=== PATIENT | female | born 1965 | race African-American/Black ===

== ENCOUNTER 2021-03-14 07:42 | Day surgery (SDC) | payer BC, OTHER ==
[2021-03-14 08:38] LABS: Absolute Lymphocytes (CBC) 1.5 K/uL (0.7-4.9); Basophils % 0.4 % (0-1.3); Hematocrit 40.8 % (36.0-45.0); Lymphocytes % 23.1 % (15.3-44.8); MPV 9.5 fL (7.6-11.3); RBC Red Blood Cell Count 4.85 M/uL (3.86-4.86)
--- NOTE | 2021-03-14 09:01 | RAD REPORT ---
EXAM DESCRIPTION: RAD - Chest Pa And Lat (2 Views) - 03/14/2021 8:16 am CLINICAL HISTORY: STAT, PREOP SAME DAY SURGERY, BED 3 COMPARISON: None TECHNIQUE: Frontal and lateral views of the chest were obtained. FINDINGS: The lungs are clear. Heart size is normal and central vasculature is within normal limit s. No pleural effusion or pneumothorax seen. No acute bony finding noted. No aortic abnormality. IMPRESSION: No acute cardiopulmonary process.
[2021-03-14 09:22] LABS: Potassium 3.9 mmol/L (3.5-5.1)
[2021-03-14] MEDS ORDERED: propofoL 200 MG/20 ML VIAL IV ONE (10:41)
[2021-03-14] MEDS ORDERED: MIDAZOLAM HCL 2 MG/2 ML INJ ONE (10:42)
[2021-03-14] MEDS ORDERED: LIDOCAINE 2% MPF 5 ML VIAL ONE (10:42)
[2021-03-14] MEDS ORDERED: BUPIVACAINE 0.5% PF 10 ML VIAL ONE (10:42)
[2021-03-14] MEDS ORDERED: FENTANYL CITR 100 MCG/2 ML ONE (10:42)
[2021-03-14] MEDS ORDERED: ONDANSETRON 4 MG/2 ML VIAL ONE (10:42)
[2021-03-14] MEDS: NA CHLORIDE 0.9% 1,000 ML ONE ×2 (10:51→10:55)
[2021-03-14] MEDS: CEFAZOLIN/SWI 1gm 1 GM/10 ML SYR ONE ×2 (10:52→11:10)
--- NOTE | 2021-03-14 11:33 | P.BOP ---
Preoperative diagnosis: tender posterior scalp mass 4x 4 cm Postoperative diagnosis: tender posterior scalp mass 3x 3 cm Primary procedure: Excisional biopsy tender posterior scalp mass 3x 3 cm Estimated blood loss: <10cc Specimen: posterior scalp mass 3x 3 cm Findings: posterior scalp mass 3x 3 cm Anesthesia: General Complications: None Transferred to: Recovery Room Condition: Good
[2021-03-14] MEDS ORDERED: EPHEDRINE SULF 50 MG/ML VIAL ONE (11:39)
[2021-03-14] MEDS ORDERED: KETOROLAC 30 MG/ML INJ ONE (11:51)
[2021-03-14] MEDS ORDERED: MEPERIDINE HCL 25 MG/ML SYR ONE (12:28)
[2021-03-14] MEDS ORDERED: CODEINE 30MG/APAP 300MG TAB ONE (13:13)
[2021-03-14 14:02] VITALS: BP 129/68; TEMP 97.4; O2SAT 98
--- NOTE | 2021-03-14 16:35 | DS ---
Date of Discharge: 03/14/2021 Diagnosis: Tender posterior scalp mass. Procedure: Excisional biopsy of tender posterior scalp mass. Disposition: Home. Activity: As tolerated. No heavy lifting. Plan: Follow up in my office in 1 week. Call for appointment at [phone]. Keep area dry for 48 laura rs, then may shower. May put some triple antibiotics after that. SEYMOUR/JOSH Voice ID: [id number] Report ID: [id number]
--- NOTE | 2021-03-14 16:35 | OP ---
Date of Procedure: 03/14/2021 Surgeon: Bishop Lafleur MD Preoperative Diagnosis: Tender posterior scalp mass, 4 x 4 cm. Postoperative Diagnosis: Tender posterior scalp mass, 3 x 3 cm. Procedure: Excisional biopsy of tender posterior scalp mass, 3 x 3 cm. Estimated Blood Loss: Less than 10 mL. Specimen: Posterior scalp mass, 3 x 3 cm. Anesthesia: General plus local. Findings: Posterior scalp mass. Complications: None. Indication: This is the case of a lady, who comes to us with enlarging mass in the posterior scalp. Given pain and discomfort, she wants that excised. It is already causing alopecia over the area of the mass itself due to pressure. The benefits, alternatives, and risks of excisional biopsy of scalp mass fully explained, which include, but not limited to infection, bleeding, damage to adjacent stru ctures, anesthesia complication, recurrence, further alopecia, [place], and even . She also understa nds this may not relieve any symptoms. She might need more than one surgical intervention. She unde rstood, signed a consent. Procedure In Detail: The area of concern was marked by me and the patient in the holding room. The patient was brought to the operating room, placed in supine position. Anesthesia was done without co mplication. The patient was placed in lateral decubitus position with proper protection. Scalp area was prepped and draped in usual sterile fashion. The area was marked with marking pen. Then, a wed ge incision in the skin was done to include the skin and the mass all the way down to [place]. The are a was irrigated. Hemostasis was obtained. Local anesthesia was applied and then we proceeded to jeannette se the area with 2-0 nylon interrupted until it is completely closed multiple times. The patient gardenia erated the procedure well. The patient was sent to recovery in stable condition. SEYMOUR/JOSH Voice ID: [id number] Report ID: [id number]
== END 2021-03-14 13:16 | disposition home or self-care (01) ==
LOC: OR 07:42
PROVIDERS: ATTEND Surgery
PROC: 0JB00ZZ Excision of Scalp Subcutaneous Tissue and Fascia, Open Approach (ICD-10-PCS; principal; 2021-03-14 10:30)
DX: L72.11 Pilar cyst (principal); Z20.822 Contact with and (suspected) exposure to COVID-19
CPT/HCPCS: 93005; 85025; 80048; 36415; 88304; 71046; 11423; U0003; J2704; J2250; J3010; J2175; J0690; J7030; J2405; 88305

== ENCOUNTER 2022-08-18 09:55 | Emergency (ER) | payer OTHER ==
--- OUTSIDE RECORDS SUMMARY | 2022-08-18 10:01 | XMS REPORT | Continuity of Care Document ---
:[address] [facility] t Address [address] [place] [address] Care Team Providers Name Role Phone Josie FIELDS Attending Clinician Unavailable Payers Payer Name Policy Type Policy Number Effective Date Expiration Date Sorin wu Ambetter from [id number] 2020 2021 Common Spi [facility] 00:00:00 00:00:00 [facility] Ambetter from [id number] 2020 2021 Common [facility]pi [facility] 00:00:00 00:00:00 [facility] Ambetter from [id number] 2020 2021 Common [facility]pi [facility] 00:00:00 00:00:00 [facility] Problems Condition Condition Condition Status Onset Resolution Last Treating Co mments Source Name Details Category Date Date Treatment Clinician Date 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) [facility] Essential Essential Problem Com mon hypertensi (primary) Spi rit on hypertensi - CHI on [facility] [id number] Controlled Problem Co mmon type 2 Spirit diabetes - CHI mellitus [facility] complicati Medica l on, Center without long-term current use of insulin Cardiac Abnormal Problem Common arrhythmia heart [facility] rhythm [facility] Hyperlipid Hyperlipid Problem C cox monettia ia [facility] Diabetes Diabetes Problem Commo n mellitus DMII Spirit without without - CHI complicati complicati on [facility] Renal Renal Problem Common insufficie insufficie Sp landon ncy ncy [facility] Hypomagnes Hypomagnes Problem C [facility] emia emia [facility] [id number] Adult BMI Problem Com mon 31.0-31.9 [facility] kg/sq m [facility] [id number] Acute Problem Common right-side [facility] d low back - [facility] pain with right-side [facility] [id number] Change in Problem Com [facility] bowel [facility] habit [facility] [id number] History of Problem Co mmon colon [facility] polyps [facility] [id number] Carpal Problem Commo n [id number] tunnel [facility] syndrome - [facility] on both [facility] [id number] Lumbago Problem Commo n with Spirit sciatica, [facility] left side [facility] Neuropathy Neuropathy Problem C ommon [facility] Polyp Colon Problem Common colon polyp [facility] [id number] Other Problem Common chronic [facility] pain [facility] [id number] Overactive Problem Co mmon bladder [facility] [id number] Spondylosi Problem Co mmon s of [facility] lumbar [facility] joint [facility] Allergies, Adverse Reactions, Alerts This patient has no known allergies or adverse reactions. Social History Social Habit Start Date Stop Date Quantity Comments Source History of Tobacco Use Co mmon [facility] Sex Assigned At [facility] [place] Smoking Status Start Date Stop Date Source Never Smoker Common [facility] Medications Ordered Filled Start Stop Current Ordering Indication Dosage Frequency Signature Comments Components Source Medication Medication Date Date Medication? Clinician (SIG) Name Name Fluconazole Fluconazole 2021- No 1{table Fluconazol 150 MG 150 MG 18 05-19 t} e 150 MG 00:00: 00:00 00 :00 Diclofenac Diclofenac 2020-0 2020- No Na Fields 2 gram Common Sodium Sodium 8 11 applicatio Spir it 00:00: 00:00 n to - CHI 00 :00 affected [facility] Triamcinolo Triamcinolo 2019 Yes Na Fields 1 Common ne ne 2-23 applicatio Spirit Acetonide Acetonide 00:00: n to - C HI 00 affected [facility] Triamcinolo Triamcinolo 2019 No 1{appli BID Triamcinol ne ne 2-23 cation_ one Acetonide Acetonide 00:00: to_affe Acetonide 0.1 % 0.1 % 00 cted_ar 0.1 % ea} Triamcinolo Triamcinolo 2018-07 No 1{appli BID Triamcinol ne ne 2-23 cation_ one Acetonide Acetonide 00:00: to_affe Acetonide 0.1 % 0.1 % 00 cted_ar 0.1 % ea} Triamcinolo Triamcinolo 2018-07 No 1{appli BID Triamcinol ne ne 2-23 cation_ one Acetonide Acetonide 00:00: to_affe Acetonide 0.1 % 0.1 % 00 cted_ar 0.1 % ea} Triamcinolo Triamcinolo 2018-07 No 1{appli BID Triamcinol ne ne 2-23 cation_ one Acetonide Acetonide 00:00: to_affe Acetonide 0.1 % 0.1 % 00 cted_ar 0.1 % ea} Triamcinolo Triamcinolo 2018-07 No 1{appli BID Triamcinol ne ne 2-23 cation_ one Acetonide Acetonide 00:00: to_affe Acetonide 0.1 % 0.1 % 00 cted_ar 0.1 % ea} Triamcinolo Triamcinolo 2019 No 1{appli BID Triamcinol ne ne 2-23 cation_ one Acetonide Acetonide 00:00: to_affe Acetonide 0.1 % 0.1 % 00 cted_ar 0.1 % ea} Triamcinolo Triamcinolo 2019 No 1{appli BID Triamcinol ne ne 2-23 cation_ one Acetonide Acetonide 00:00: to_affe Acetonide 0.1 % 0.1 % 00 cted_ar 0.1 % ea} Triamcinolo Triamcinolo 2018-07 No 1{appli BID Triamcinol ne ne 2-23 cation_ one Acetonide Acetonide 00:00: to_affe Acetonide 0.1 % 0.1 % 00 cted_ar 0.1 % ea} Triamcinolo Triamcinolo 2018-07 No 1{appli BID Triamcinol ne ne 2-23 cation_ one Acetonide Acetonide 00:00: to_affe Acetonide 0.1 % 0.1 % 00 cted_ar 0.1 % ea} Triamcinolo Triamcinolo 2018-07 No 1{appli BID Triamcinol ne ne 2-23 cation_ one Acetonide Acetonide 00:00: to_affe Acetonide 0.1 % 0.1 % 00 cted_ar 0.1 % ea} Gabapentin Gabapentin Yes Na Fields 1 capsule Common 07-29 Spirit 00:00: - CHI 00 [facility] Norvas Yes Na Fields 1 tablet Co [facility] Crestor Crestor Yes Na Fields 1 tablet Co [facility] Aspir-81 Aspir-81 Yes Na Fields 1 tablet Common [facility] Metformin Metformin Yes Na Fields 1 tablet Common HCl HCl with a Spirit meal [facility] Crestor Crestor Yes Na Fields 1 tablet Co [facility] Norvasc 10 Norvasc 10 No 1{table QD Norvasc 10 MG MG t} MG Gabapentin Gabapentin No Gabapentin 300 MG 300 MG 300 MG Gabapentin Gabapentin No 1{capsu BID Gabapentin 300 MG 300 MG le} 300 MG Crestor 20 Crestor 20 No 1{table QD Crestor 20 MG MG t} MG Crestor 10 Crestor 10 No 1{table QD Crestor 10 MG MG t} MG Rosuvastati Rosuvastati No Rosuvastat n Calcium n Calcium in Calcium 20 MG 20 MG 20 MG metFORMIN metFORMIN No 1{table QD metFORMIN HCl 500 MG HCl 500 MG t_with_ HCl 500 MG a_meal} Spironolact Spironolact No 1{table QD Spironolac one 25 MG one 25 MG t} tone 25 MG Crestor 20 Crestor 20 No 1{table QD Crestor 20 MG MG t} MG metFORMIN metFORMIN No 1{table QD metFORMIN HCl 500 MG HCl 500 MG t_with_ HCl 500 MG a_meal} Crestor 10 Crestor 10 No 1{table QD Crestor 10 MG MG t} MG Rosuvastati Rosuvastati No Rosuvastat n Calcium n Calcium in Calcium 20 MG 20 MG 20 MG Spironolact Spironolact No 1{table QD Spironolac one 25 MG one 25 MG t} tone 25 MG Gabapentin Gabapentin No 1{capsu BID Gabapentin 300 MG 300 MG le} 300 MG Norvasc 10 Norvasc 10 No 1{table QD Norvasc 10 MG MG t} MG Aspir-81 81 Aspir-81 81 No 1{table QD Aspir-81 MG MG t} 81 MG Gabapentin Gabapentin No Gabapentin 300 MG 300 MG 300 MG Norvasc 10 Norvasc 10 No 1{table QD Norvasc 10 MG MG t} MG Rosuvastati Rosuvastati No Rosuvastat n Calcium n Calcium in Calcium 20 MG 20 MG 20 MG Crestor 10 Crestor 10 No 1{table QD Crestor 10 MG MG t} MG metFORMIN metFORMIN No 1{table QD metFORMIN HCl 500 MG HCl 500 MG t_with_ HCl 500 MG a_meal} amLODIPine amLODIPine No amLODIPine Besylate 10 Besylate 10 Besylate MG MG 10 MG Gabapentin Gabapentin No Gabapentin 300 MG 300 MG 300 MG Spironolact Spironolact No Spironolac one 25 MG one 25 MG tone 25 MG Aspir-81 81 Aspir-81 81 No 1{table QD Aspir-81 MG MG t} 81 MG Gabapentin Gabapentin No 2{capsu BID Gabapentin 300 MG 300 MG le} 300 MG Spironolact Spironolact No 1{table QD Spironolac one 25 MG one 25 MG t} tone 25 MG Crestor 20 Crestor 20 No 1{table QD Crestor 20 MG MG t} MG Norvasc 10 Norvasc 10 No 1{table QD Norvasc 10 MG MG t} MG Rosuvastati Rosuvastati No Rosuvastat n Calcium n Calcium in Calcium 20 MG 20 MG 20 MG Crestor 10 Crestor 10 No 1{table QD Crestor 10 MG MG t} MG metFORMIN metFORMIN No 1{table QD metFORMIN HCl 500 MG HCl 500 MG t_with_ HCl 500 MG a_meal} amLODIPine amLODIPine No amLODIPine Besylate 10 Besylate 10 Besylate MG MG 10 MG Gabapentin Gabapentin No Gabapentin 300 MG 300 MG 300 MG Spironolact Spironolact No Spironolac one 25 MG one 25 MG tone 25 MG Aspir-81 81 Aspir-81 81 No 1{table QD Aspir-81 MG MG t} 81 MG Gabapentin Gabapentin No 2{capsu BID Gabapentin 300 MG 300 MG le} 300 MG Spironolact Spironolact No 1{table QD Spironolac one 25 MG one 25 MG t} tone 25 MG Crestor 20 Crestor 20 No 1{table QD Crestor 20 MG MG t} MG Aspir-81 81 Aspir-81 81 No 1{table QD Aspir-81 MG MG t} 81 MG Gabapentin Gabapentin No Gabapentin 300 MG 300 MG 300 MG Rosuvastati Rosuvastati No Rosuvastat n Calcium n Calcium in Calcium 20 MG 20 MG 20 MG amLODIPine amLODIPine No amLODIPine Besylate 10 Besylate 10 Besylate MG MG 10 MG Crestor 10 Crestor 10 No 1{table QD Crestor 10 MG MG t} MG Spironolact Spironolact No Spironolac one 25 MG one 25 MG tone 25 MG Norvasc 10 Norvasc 10 No 1{table QD Norvasc 10 MG MG t} MG Crestor 20 Crestor 20 No 1{table QD Crestor 20 MG MG t} MG metFORMIN metFORMIN No 1{table QD metFORMIN HCl 500 MG HCl 500 MG t_with_ HCl 500 MG a_meal} Rosuvastati Rosuvastati No Rosuvastat n Calcium n Calcium in Calcium 20 MG 20 MG 20 MG Aspir-81 81 Aspir-81 81 No 1{table QD Aspir-81 MG MG t} 81 MG Gabapentin Gabapentin No Gabapentin 300 MG 300 MG 300 MG Norvasc 10 Norvasc 10 No 1{table QD Norvasc 10 MG MG t} MG amLODIPine amLODIPine No amLODIPine Besylate 10 Besylate 10 Besylate MG MG 10 MG Crestor 20 Crestor 20 No 1{table QD Crestor 20 MG MG t} MG Azithromyci Azithromyci No QD Azithromyc n 250 MG n 250 MG in 250 MG Crestor 10 Crestor 10 No 1{table QD Crestor 10 MG MG t} MG methylPREDN methylPREDN No QD methylPRED ISolone 4 ISolone 4 NISolone 4 MG MG MG Benzonatate Benzonatate No 1{capsu TID Benzonatat 200 MG 200 MG le} e 200 MG Spironolact Spironolact No Spironolac one 25 MG one 25 MG tone 25 MG metFORMIN metFORMIN No 1{table QD metFORMIN HCl 500 MG HCl 500 MG t_with_ HCl 500 MG a_meal} Rosuvastati Rosuvastati No Rosuvastat n Calcium n Calcium in Calcium 20 MG 20 MG 20 MG Aspir-81 81 Aspir-81 81 No 1{table QD Aspir-81 MG MG t} 81 MG Gabapentin Gabapentin No Gabapentin 300 MG 300 MG 300 MG Norvasc 10 Norvasc 10 No 1{table QD Norvasc 10 MG MG t} MG amLODIPine amLODIPine No amLODIPine Besylate 10 Besylate 10 Besylate MG MG 10 MG Crestor 20 Crestor 20 No 1{table QD Crestor 20 MG MG t} MG Azithromyci Azithromyci No QD Azithromyc n 250 MG n 250 MG in 250 MG Crestor 10 Crestor 10 No 1{table QD Crestor 10 MG MG t} MG methylPREDN methylPREDN No QD methylPRED ISolone 4 ISolone 4 NISolone 4 MG MG MG Benzonatate Benzonatate No 1{capsu TID Benzonatat 200 MG 200 MG le} e 200 MG Spironolact Spironolact No Spironolac one 25 MG one 25 MG tone 25 MG metFORMIN metFORMIN No 1{table QD metFORMIN HCl 500 MG HCl 500 MG t_with_ HCl 500 MG a_meal} Rosuvastati Rosuvastati No Rosuvastat n Calcium n Calcium in Calcium 20 MG 20 MG 20 MG Aspir-81 81 Aspir-81 81 No 1{table QD Aspir-81 MG MG t} 81 MG Gabapentin Gabapentin No Gabapentin 300 MG 300 MG 300 MG Norvasc 10 Norvasc 10 No 1{table QD Norvasc 10 MG MG t} MG amLODIPine amLODIPine No amLODIPine Besylate 10 Besylate 10 Besylate MG MG 10 MG Crestor 20 Crestor 20 No 1{table QD Crestor 20 MG MG t} MG Azithromyci Azithromyci No QD Azithromyc n 250 MG n 250 MG in 250 MG Crestor 10 Crestor 10 No 1{table QD Crestor 10 MG MG t} MG methylPREDN methylPREDN No QD methylPRED ISolone 4 ISolone 4 NISolone 4 MG MG MG Benzonatate Benzonatate No 1{capsu TID Benzonatat 200 MG 200 MG le} e 200 MG Spironolact Spironolact No Spironolac one 25 MG one 25 MG tone 25 MG metFORMIN metFORMIN No 1{table QD metFORMIN HCl 500 MG HCl 500 MG t_with_ HCl 500 MG a_meal} Aspir-81 81 Aspir-81 81 No 1{table QD Aspir-81 MG MG t} 81 MG Norvasc 10 Norvasc 10 No 1{table QD Norvasc 10 MG MG t} MG Gabapentin Gabapentin No Gabapentin 300 MG 300 MG 300 MG Gabapentin Gabapentin No 1{capsu BID Gabapentin 300 MG 300 MG le} 300 MG Crestor 20 Crestor 20 No 1{table QD Crestor 20 MG MG t} MG Crestor 10 Crestor 10 No 1{table QD Crestor 10 MG MG t} MG Rosuvastati Rosuvastati No Rosuvastat n Calcium n Calcium in Calcium 20 MG 20 MG 20 MG metFORMIN metFORMIN No 1{table QD metFORMIN HCl 500 MG HCl 500 MG t_with_ HCl 500 MG a_meal} Spironolact Spironolact No 1{table QD Spironolac one 25 MG one 25 MG t} tone 25 MG Aspir-81 81 Aspir-81 81 No 1{table QD Aspir-81 MG MG t} 81 MG Norvasc 10 Norvasc 10 No 1{table QD Norvasc 10 MG MG t} MG Gabapentin Gabapentin No Gabapentin 300 MG 300 MG 300 MG Gabapentin Gabapentin No 1{capsu BID Gabapentin 300 MG 300 MG le} 300 MG Crestor 20 Crestor 20 No 1{table QD Crestor 20 MG MG t} MG Crestor 10 Crestor 10 No 1{table QD Crestor 10 MG MG t} MG Rosuvastati Rosuvastati No Rosuvastat n Calcium n Calcium in Calcium 20 MG 20 MG 20 MG metFORMIN metFORMIN No 1{table QD metFORMIN HCl 500 MG HCl 500 MG t_with_ HCl 500 MG a_meal} Spironolact Spironolact No 1{table QD Spironolac one 25 MG one 25 MG t} tone 25 MG Aspir-81 81 Aspir-81 81 No 1{table QD Aspir-81 MG MG t} 81 MG Diclofenac Diclofenac 2021- No Diclofenac Sodium 1 % Sodium 1 % 05-15 Sodium 1 % 00:00 :00 Diclofenac Diclofenac 2021- No Diclofenac Sodium 1 % Sodium 1 % 05-15 Sodium 1 % 00:00 :00 Diclofenac Diclofenac 2021- No Diclofenac Sodium 1 % Sodium 1 % 05-15 Sodium 1 % 00:00 :00 Spironolact Spironolact 2019- No Na Fields 1 tablet Common one one -20 Spirit 00:00 - CHI :00 [facility] Immunizations Ordered Immunization Filled Immunization Date Status Commen ts Source Name Name Afluria single dose Afluria single dose 2019-04-12 Completed Common [facility] 10:06:00 - [facility] Afluria single dose Afluria single dose 2019-04-12 Completed Common [facility] 10:06:00 - [facility] Afluria single dose Afluria single dose 2019-04-12 Completed Common [facility] 10:06:00 - [facility] Afluria single dose Afluria single dose 2019-04-12 Completed Common [facility] 10:06:00 - [facility] Afluria single dose Afluria single dose 2019-04-12 Completed Common [facility] 10:06:00 - [facility] Afluria single dose Afluria single dose 2019-04-12 Completed Common [facility] 10:06:00 [facility] Afluria single dose Afluria single dose 2019-04-12 Completed Common [facility] 10:06:00 [facility] Afluria single dose Afluria single dose 2019-04-12 Completed Common [facility] 10:06:00 - [facility] Afluria single dose Afluria single dose 2019-04-12 Completed Common [facility] 10:06:00 [facility] Afluria single dose Afluria single dose 2019-04-12 Completed Common [facility] 10:06:00 [facility] Afluria single dose Afluria single dose 2019-04-12 Completed Common [facility] 00:00:00 [facility] Afluria Afluria 2018-04-29 Completed Common [facility] 16:10:00 [facility] Afluria Afluria 2018-04-29 Completed Common [facility] 16:10:00 [facility] Afluria Afluria 2018-04-29 Completed Common [facility] 16:10:00 [facility] Afluria Afluria 2018-04-29 Completed Common [facility] 16:10:00 - [facility] Afluria Afluria 2018-04-29 Completed Common [facility] 16:10:00 - [facility] Afluria Afluria 2018-04-29 Completed Common [facility] 16:10:00 - [facility] Afluria Afluria 2018-04-29 Completed Common [facility] 16:10:00 - [facility] Afluria Afluria 2018-04-29 Completed Common [facility] 16:10:00 - [facility] Afluria Afluria 2018-04-29 Completed Common [facility] 16:10:00 - [facility] Afluria Afluria 2018-04-29 Completed Common [facility] 16:10:00 - [facility] Vital Signs Vital Name Observation Time Observation Value Comments Source height 2022-07-24 09:20:00 63 [in_i] [facility] weight 2022-07-24 09:20:00 198 [lb_av] [facility] bmi 2022-07-24 09:20:00 35.07 kg/m2 [facility] height 2021-12-05 08:00:00 63 [in_i] [facility] weight 2021-12-05 08:00:00 198 [lb_av] [facility] temperature 2021-12-05 08:00:00 97.3 [degF] [facility] bmi 2021-12-05 08:00:00 35.07 kg/m2 [facility] height 2021-06-05 08:20:00 63 [in_i] [facility] weight 2021-06-05 08:20:00 187 [lb_av] [facility] temperature 2021-06-05 08:20:00 97.5 [degF] [facility] bmi 2021-06-05 08:20:00 33.12 kg/m2 [facility] blood pressure 2021-06-05 08:20:00 116 mm[Hg] Common [facility] - systolic [facility] blood pressure 2021-06-05 08:20:00 66 mm[Hg] Common [facility] - diastolic [facility] Procedures This patient has no known procedures. Encounters Start End Encounter Admission Attending Care Care Encounter Source Date/Time Date/Time Type Type Clinicians Facility Department ID 2022-08-05 Outpatient FIELDS, Na STLMLC STLMLC [id number] Common 11:07:00 [id number] [facility] 2021-08-15 Outpatient Fields, Na STLMLC STLMLC [id number] Common 14:01:37 [id number] [facility] 2021-08-15 Outpatient Fields, Na STLMLC STLMLC [id number] 2 Common 13:35:37 [id number] [facility] 2021-08-15 Outpatient Fields, Na STLMLC STLMLC [id number] 2 Common 12:48:10 [id number] [facility] 2021-08-15 Outpatient Fields, Na STLMLC STLMLC [id number] 2 Common 12:48:04 [id number] [facility] 2021-08-15 Outpatient Fields, Na STLMLC STLMLC [id number] 2 Common 12:45:47 [id number] [facility] 2021-08-15 Outpatient Fields, Na STLMLC STLMLC [id number] 2 Common 12:19:26 [id number] [facility] 2021-08-15 Outpatient Fields, Na STLMLC STLMLC [id number] 2 Common 12:18:31 [id number] [facility] 2021-08-15 Outpatient Fields, Na STLMLC STLMLC [id number] Common 12:08:43 [id number] [facility] 2021-08-15 Outpatient Fields, Na STLMLC STLMLC [id number] 2 Common 11:53:46 [id number] [facility] 2021-08-15 Outpatient Fields, Na STLMLC STLMLC [id number] Common 11:41:01 [id number] [facility] 2022-08-05 2022-08-05 (TEL) STLMLC STLMLC [id number] Co mmon 00:00:00 00:00:00 [facility] 2022-07-24 2022-07-24 OFFICE STLMLC STLMLC [id number] Co mmon 00:00:00 00:00:00 VISIT EST Spir it PT LEVEL 3 [facility] 2022-07-23 2022-07-23 (TEL) STLMLC STLMLC [id number] Co mmon 00:00:00 00:00:00 [facility] 2022-07-09 2022-07-09 (TEL) STLMLC STLMLC [id number] Co mmon 00:00:00 00:00:00 [facility] 2022-03-27 2022-03-27 (TEL) STLMLC STLMLC [id number] Co mmon 00:00:00 00:00:00 [facility] 2022-03-06 2022-03-06 OFFICE STLMLC STLMLC [id number] Co mmon 00:00:00 00:00:00 VISIT [facility] PT - CHI LEVEL 4 [facility] 2021-12-05 2021-12-05 OFFICE STLMLC STLMLC [id number] Co mmon 00:00:00 00:00:00 VISIT [facility] PT - CHI LEVEL 4 [facility] 2021-06-22 2021-06-22 (TEL) STLMLC STLMLC [id number] Co mmon 00:00:00 00:00:00 [facility] 2021-06-13 2021-06-13 (TEL) STLMLC STLMLC [id number] Co mmon 00:00:00 00:00:00 [facility] 2021-06-05 2021-06-05 OFFICE STLMLC STLMLC [id number] Co mmon 00:00:00 00:00:00 VISIT [facility] PT - CHI LEVEL 4 [facility] 2021-03-06 2021-03-06 Outpatient STLMLC STLMLC [id number] Common 00:00:00 00:00:00 [facility] 2021-03-05 2021-03-05 Outpatient STLMLC STLMLC [id number] Common 00:00:00 00:00:00 [facility] 2021-02-26 2021-02-26 Outpatient STLMLC STLMLC [id number] Common 00:00:00 00:00:00 [facility] 2020-10-24 2020-10-24 Outpatient STLMLC STLMLC [id number] Common 00:00:00 00:00:00 [facility] 2020-07-28 2020-07-28 Outpatient STLMLC STLMLC [id number] Common 00:00:00 00:00:00 [facility] 2020-07-15 2020-07-15 Outpatient STLMLC STLMLC [id number] Common 00:00:00 00:00:00 [facility] 2020-07-08 2020-07-08 Outpatient STLMLC STLMLC [id number] Common 00:00:00 00:00:00 [facility] 2020-07-03 2020-07-03 Outpatient STLMLC STLMLC [id number] Common 00:00:00 00:00:00 [facility] 2020-06-29 2020-06-29 Outpatient STLMLC STLMLC [id number] Common 00:00:00 00:00:00 [facility] 2020-05-30 2020-05-30 Outpatient STLMLC STLMLC [id number] Common 00:00:00 00:00:00 [facility] 2020-05-23 2020-05-23 Outpatient STLMLC STLMLC [id number] Common 00:00:00 00:00:00 [facility] 2020 2020 Outpatient STLMLC STLMLC [id number] Common 00:00:00 00:00:00 [facility] 2020-04-11 2020-04-11 Outpatient STLMLC STLMLC [id number] Common 00:00:00 00:00:00 [facility] 2020-03-22 2020-03-22 [id number] Common 07:22:00 07:22:[address] [place] [address] [facility] 2020-03-17 2020-03-17 [facility] [id number] Common 10:20:00 10:20:00 [place] [address] [facility] 2019-07-12 2019-07-12 [facility] [id number] Common 08:40:00 08:40:00 [place] [address] [address] [facility] 2019-07-05 2019-07-05 [facility] [id number] Common 17:06:00 17:06:00 [place] [address] [facility] 2019-05-24 2019-05-24 [facility] [id number] Common 09:32:00 09:32:00 [place] [address] [facility] 2019-04-12 2019-04-12 [facility] [id number] Common 08:40:00 08:40:00 [place] [address] [facility] 2018-08-31 2018-08-31 [facility] [id number] Common 10:15:00 10:15:00 [place] [address] [facility] 2018-08-24 2018-08-24 [facility] [id number] Common 09:44:00 09:44:00 [place] [address] [facility] 2018-08-10 2018-08-10 [facility] [id number] Common 14:43:00 14:43:00 [place] [address] [facility] 2018-07-29 2018-07-29 [facility] [id number] Common 09:15:00 09:15:00 [place] [address] [place] [address] [facility] Results Test Description Test Time Test Comments Results Result Comments Source Microalbumin/Creat Ratio, Random Ur 2021-06-11 00:00:00 Test Item Value Reference Range Interpretation Comme nts Creatinine, Urine (test code = 2161-8) 173.4 Not Estab. Albumin, Urine (test code = 60532-4) <3.0 Not Estab. Alb/Creat Ratio (test code = 17245-6) <2 0-29 Hemoglobin [id number] 00:00:00 Test Item Value Reference Range Interpretation Comments Hemoglobin A1c (test code = 4548-4) 6.0 4.8-5.6 Comp. Metabolic Panel (14) (CMP)2021-06-11 00:00:00 Test Item Value Reference Range Interpretation Comments Glucose (test code = 2345-7) 86 65-99 BUN (test code = 3094-0) 14 6-24 Creatinine (test code = 2160-0) 0.95 0.57-1.00 eGFR If NonAfricn Am (test code = 68 >59 11446-8) eGFR If Africn Am (test code = 38604-7) 79 >59 BUN/Creatinine Ratio (test code = 15 04-12 3097-3) Sodium (test code = 2951-2) 142 134-144 Potassium (test code = 2823-3) 5.3 3.5-5.2 Chloride (test code = 2075-0) 104 96-106 Carbon Dioxide, Total (test code = -2028-03) Calcium (test code = 98530-0) 10.3 8.7-10.2 Protein, Total (test code = 2885-2) 6.9 6.0-8.5 Albumin (test code = 1751-7) 4.4 3.8-4.9 Globulin, Total (test code = 20457-6) 2.5 1.5-4.5 A/G Ratio (test code = 1759-0) 1.8 1.2-2.2 Bilirubin, Total (test code = 1975-2) 0.5 0.0-1.2 Alkaline Phosphatase (test code = 77 44-121 6768-6) AST (SGOT) (test code = 1920-8) 18 0-40 ALT (SGPT) (test code = 1742-6) 19 0-32 CBC With Differential/[id number] 00:00:00 Test Item Value Reference Range Interpretation Comments WBC (test code = 6690-2) 3.9 3.4-10.8 RBC (test code = 789-8) 4.89 3.77-5.28 Hemoglobin (test code = 718-7) 13.0 11.1-15.9 Hematocrit (test code = 4544-3) 40.7 34.0-46.6 MCV (test code = 787-2) 83 79-97 MCH (test code = 785-6) 26.6 26.6-33.0 MCHC (test code = 786-4) 31.9 31.5-35.7 RDW (test code = 788-0) 13.3 11.7-15.4 Platelets (test code = 777-3) 204 150-450 Neutrophils (test code = 770-8) 53 Not Estab. Lymphs (test code = 736-9) 36 Not Estab. Monocytes (test code = 5905-5) 9 Not Estab. Eos (test code = 713-8) 1 Not Estab. Basos (test code = 706-2) 1 Not Estab. Immature Cells (test code = UNLOINC) Neutrophils (Absolute) (test code = 2.1 1.4-7.0 751-8) Lymphs (Absolute) (test code = 731-0) 1.4 0.7-3.1 Monocytes(Absolute) (test code = 742-7) 0.3 0.1-0.9 Eos (Absolute) (test code = 711-2) 0.1 0.0-0.4 Baso (Absolute) (test code = 704-7) 0.0 0.0-0.2 Immature Granulocytes (test code = 0 Not Estab. 96145-8) Immature Grans (Abs) (test code = 0.0 0.0-0.1 15019-4) NRBC (test code = 90633-2) Hematology Comments: (test code = 61539-0) TSH reflex to [id number] 00:00:00 Test Item Value Reference Range Interpretation Comments TSH (test code = 25641-4) 1.500 0.450-4.500
[2022-08-18] MEDS ORDERED: PANTOPRAZOLE 40MG TABLET PO ONE (10:22)
--- NOTE | 2022-08-18 10:38 | RAD REPORT ---
EXAM DESCRIPTION: RAD - Chest Pa And Lat (2 Views) - 08/18/2022 10:32 am CLINICAL HISTORY: COUGH COMPARISON: <Comparisons> FINDINGS: Lines: None. Lungs: No evidence of edema or pneumonia. Pleural: No significant pleural effusions or pneumothorax. Cardiac: The heart size is within normal limits. Mediastinum: Within normal limits. Bones: No acute fractures. Other: None IMPRESSION: No acute cardiopulmonary disease.
--- NOTE | 2022-08-18 11:33 | EDPHYS ---
Physician Documentation [facility] Name: Evon Silverman Age: 57 yrs Sex: Female : 1965 Arrival Date: 08/18/2022 Time: 09:59 Bed 20 Private MD: Gopal Jeff HPI: 08/18 10:17 This 57 yrs old Black Female presents to ER via Ambulatory with complaints of Cough. snw 10:17 The patient or guardian reports cough, described as moderate. Onset: The snw symptoms/episode began/occurred 3 month(s) ago, and became persistent. Severity of symptoms: At their worst the symptoms were moderate. Associated signs and symptoms: The patient has no apparent associated signs or symptoms. The patient has not experienced similar symptoms in the past. pt states he Doctor gave her some medications but they did not help. 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 - Social history:: Smoking status: Patient denies any tobacco usage or history of. ROS: 10:17 Respiratory: Positive for cough, x several months. snw Exam: 10:17 Constitutional: This is a well developed, well nourished patient who is awake, alert, snw and in no acute distress. Head/Face: Normocephalic, atraumatic. Eyes: Pupils equal round and reactive to light, extra-ocular motions intact. Lids and lashes normal. Conjunctiva and sclera are non-icteric and not injected. Cornea within normal limits. Periorbital areas with no swelling, redness, or edema. Chest/axilla: Normal chest wall appearance and motion. Nontender with no deformity. No lesions are appreciated. Cardiovascular: Regular rate and rhythm with a normal S1 and S2. No gallops, murmurs, or rubs. Normal PMI, no JVD. No pulse deficits. Respiratory: Lungs have equal breath sounds bilaterally, clear to auscultation and percussion. No rales, rhonchi or wheezes noted. No increased work of breathing, no retractions or nasal flaring. Abdomen/GI: Soft, non-tender, with normal bowel sounds. No distension or tympany. No guarding or rebound. No evidence of tenderness throughout. Back: No spinal tenderness. No costovertebral tenderness. Full range of motion. Skin: Warm, dry with normal turgor. Normal color with no rashes, no lesions, and no evidence of cellulitis. MS/ Extremity: Pulses equal, no cyanosis. Neurovascular intact. Full, normal range of motion. Neuro: Awake and alert, GCS 15, oriented to person, place, time, and situation. Cranial nerves II-XII grossly intact. Motor strength 5/5 in all extremities. Sensory grossly intact. Cerebellar exam normal. Normal gait. Psych: Awake, alert, with orientation to person, place and time. Behavior, mood, and affect are within normal limits. Vital Signs: 10:09 BP 144 / 83; Pulse 60; Resp 15; Temp 98.4; Pulse Ox 99% on R/A; Weight 89.81 kg; Height ss 5 ft. 3 in. (160.02 cm); Pain 0/10; 11:54 BP 138 / 78; Pulse 65; Resp 16; Pulse Ox 99% ; ko1 10:09 Body Mass Index 35.07 (89.81 kg, 160.02 cm) ss MDM: 10:04 Patient medically screened. snw 11:37 Differential Diagnosis: Bronchitis Influenza Upper Respiratory Infection Allergic snw Rhinitis Viral Syndrome Other GERD. Data reviewed: vital signs, nurses notes. I considered the following discharge prescriptions or medication management in the emergency department Medications were administered in the Emergency Department. See MAR. Care significantly affected by the following chronic conditions: Diabetes, Hypertension. Counseling: I had a detailed discussion with the patient and/or guardian regarding: the historical points, exam findings, and any diagnostic results supporting the discharge/admit diagnosis, the presence of at least one elevated blood pressure reading (>120/80) during this emergency department visit, radiology results, the need for outpatient follow up, to return to the emergency department if symptoms worsen or persist or if there are any questions or concerns that arise at home. Special discussion: I have referred the patient to see his PCP for further evaluation of high blood pressure. Based on the history and exam findings, there is no indication for further emergent testing or inpatient evaluation. I discussed with the patient/guardian the need to see the primary care provider for further evaluation of the symptoms. 08/18 10:16 Order name: Chest Pa And Lat (2 Views) XRAY; Complete Time: 10:42 snw Administered Medications: 10:19 Drug: ProTONIX (pantoprazole) 40 mg Route: PO; ko1 11:55 Follow up: Response: No adverse reaction ko1 Disposition: 11:38 Chart complete. snw 11:39 Chart complete. snw Disposition Summary: 08/18/22 11:33 Discharge Ordered Location: Home snw Condition: Stable snw Diagnosis - Cough snw - Gastro-esophageal reflux disease without esophagitis snw Followup: snw - With: Emergency Department - When: As needed - Reason: Worsening of condition Followup: snw - With: Private Physician - When: 2 - 3 days - Reason: Recheck today's complaints, Continuance of care, Re-evaluation by your physician Discharge Instructions: - Discharge Summary Sheet snw - Food Choices for Gastroesophageal Reflux Disease, Adult snw - Gastroesophageal Reflux Disease, Adult snw - Cool Mist Vaporizer snw - Cough, Adult snw Forms: - Medication Reconciliation Form snw - Thank You Letter snw - Antibiotic Education snw - Prescription Opioid Use snw - Work release form eb Prescriptions: - Protonix 40 mg Oral tablet,delayed release (DR/EC) - take 1 tablet by ORAL route once daily; 90 tablet; Refills: 0, Product snw Selection Permitted Signatures: Dispatcher [employer] Amanda Sullivan FNP-C ASSOCIATE EDITOR-Csnw Nohemy Diaz, RN RN ss Vi Moss, RN RN ko1
--- NOTE | 2022-08-18 11:33 | ER ---
Nurse's Notes [facility] Name: Evon Silverman Age: 57 yrs Sex: Female : 1965 Arrival Date: 08/18/2022 Time: 09:59 Bed 20 Private MD: Diagnosis: Cough;Gastro-esophageal reflux disease without esophagitis Presentation: 08/18 10:09 Chief complaint: Patient states: cough that has been ongoing since before [place]. ss Denies fever. Coronavirus screen: Client denies travel out of the [place] in the last 14 days. Client presents with at least one sign or symptom that may indicate coronavirus-19. Ebola Screen: Patient denies exposure to infectious person. Patient denies travel to an Ebola-affected area in the 21 days before illness onset. Initial Sepsis Screen: Does the patient meet any 2 criteria? No. Patient's initial sepsis screen is negative. Does the patient have a suspected source of infection? No. Patient's initial sepsis screen is negative. Risk Assessment: Do you want to hurt yourself or someone else? Patient reports no desire to harm self or others. Onset of symptoms was June 2022. 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 - Social history:: Smoking status: Patient denies any tobacco usage or history of. Screenin:15 [facility] ED Fall Risk Assessment (Adult) History of falling in the last 3 months, ko1 including since admission No falls in past 3 months (0 pts) Confusion or Disorientation No (0 pts) Intoxicated or Sedated No (0 pts) Impaired Gait No (0 pts) Mobility Assist Device Used No (0 pt) Altered Elimination No (0 pt) Score/Fall Risk Level 0 - 2 = Low Risk Oriented to surroundings, Maintained a safe environment, Educated pt \T\ family on fall prevention, incl call for assistance when getting out of bed, Assessed \T\ reinforced patient's understanding of fall precautions, Provided non-skid footwear, Hourly rounding (assess needs \T\ fall precautionary measures) done, Used ambulatory aids as needed (educated on \T\ assisted with), Used gait belt as appropriate. Abuse screen: Denies threats or abuse. Denies injuries from another. Nutritional screening: No deficits noted. Tuberculosis screening: No symptoms or risk factors identified. Assessment: 10:15 General: Appears in no apparent distress. comfortable, Behavior is calm, cooperative, ko1 appropriate for age. Pain: Denies pain. Neuro: No deficits noted. Cardiovascular: No deficits noted. Respiratory: Reports cough that is non-productive, since before [place]. GI: No deficits noted. : No deficits noted. EENT: No deficits noted. Derm: No deficits noted. Musculoskeletal: No deficits noted. Vital Signs: 10:09 BP 144 / 83; Pulse 60; Resp 15; Temp 98.4; Pulse Ox 99% on R/A; Weight 89.81 kg; Height ss 5 ft. 3 in. (160.02 cm); Pain 0/10; 11:54 BP 138 / 78; Pulse 65; Resp 16; Pulse Ox 99% ; ko1 10:09 Body Mass Index 35.07 (89.81 kg, 160.02 cm) ss ED Course: 09:59 Patient arrived in ED. rg4 10:04 Amanda Nicole FNP-C is [facility]. snw 10:04 Gopal Jansen MD is Attending Physician. snw 10:07 Vi Moss, CHRIS is Primary Nurse. ko1 10:11 Triage completed. ss 10:11 Arm band placed on right wrist. ss 10:15 Patient has correct armband on for positive identification. Bed in low position. Call ko1 light in reach. Side rails up X 1. Pulse ox on. NIBP on. Warm blanket given. 10:34 Chest Pa And Lat (2 Views) XRAY In Process Unspecified. EDMS 11:54 No provider procedures requiring assistance completed. Patient did not have IV access ko1 during this emergency room visit. Administered Medications: 10:19 Drug: ProTONIX (pantoprazole) 40 mg Route: PO; ko1 11:55 Follow up: Response: No adverse reaction ko1 Medication: 11:54 VIS not applicable for this client. ko1 Outcome: 11:33 Discharge ordered by . eugenia 11:54 Discharged to home ambulatory. ko1 11:54 Condition: stable 11:54 Discharge instructions given to patient, Instructed on discharge instructions, follow up and referral plans. medication usage, Demonstrated understanding of instructions, follow-up care, medications, Prescriptions given X 1. 12:03 Patient left the ED. ko1 Signatures: Dispatcher [employer] EDMS Amanda Nicole, [employer] NURSE-C [employer] NURSE-Csnw Nohemy Diaz, RN Mary Stephenson4 Vi Moss, RN RN ko1
[2022-08-18 12:14] VITALS: TEMP 98.4; O2SAT 99
[2022-08-18 12:25] VITALS: BP 138/78
== END 2022-08-18 12:03 | disposition home or self-care (01) ==
LOC: ER 09:55
DX: R05.9 Cough, unspecified (principal); K21.9 Gastro-esophageal reflux disease without esophagitis; I10 Essential (primary) hypertension; E11.9 Type 2 diabetes mellitus without complications; E78.5 Hyperlipidemia, unspecified; Z79.82 Long term (current) use of aspirin
CPT/HCPCS: 71046; 99284